=== PATIENT | female | born 1960 | race Caucasian/White ===

== ENCOUNTER 2017-02-07 21:16 | Emergency (ER) | payer BC, OTHER ==
[~2017-02-07] VITALS: Ht 176.5 cm; Wt 84.2 kg
[2017-02-07 21:21] VITALS: TEMP 36.7; Ht 176.5 cm; Wt 84.2 kg
[2017-02-07] MEDS ORDERED: AMOXICIL/CLAVU 875MG HOME PACK PO ONE (21:45)
[2017-02-07] MEDS ORDERED: DIPHTHERIA/TETANUS/PERTUSSIS 0.5 ML SYR/VIAL IM. ONE (21:45)
[2017-02-07] MEDS ORDERED: AMOX875T PO (21:46)
[2017-02-07 22:08] VITALS: BP 141/87; PULSE 87; O2SAT 95
--- NOTE | 2017-02-07 22:18 | EMERGENCY ROOM VISIT NOTE ---
History First contact with patient: 21:48 Chief Complaint: WOUND INFECTION Stated Complaint: WOUND IN LEFT HAND, 3RD DIGIT Nursing Triage Summary: Patient states that she but cut her left middle finger, reports increased pain and swelling. States that she has been workin on in the soil. Doesn't think her tetanus shot is utd. History of Present Illness The patient is a 56 year old female who presents to the Emergency Room with complaints of an infection in her left third finger. The patient reports that she has been doing a lot of planting and working and soil lately. She reports that she split the fingernail on her finger, and pulled it off. Within 24 hours , she then started to noticed discomfort and swelling. Today she now reports redness along the nail. She has not noticed any drainage. The pain does not extend up the finger. She denies any paresthesias or numbness of the finger. The patient is [id number]. Patient is uncertain of her last tetanus immunization. Review of Systems 10 system review was performed and was negative except for pertinent positives and negatives as indicated in history of present illness Past Medical/Surgical History Medical Problems: (1) Diffus Cystic Mastopathy Family History Unremarkable Social History Smoking Status: Never Smoker Alcohol Use: none Marital Status: single Occupation Status: employed Current/Historical Medications Scheduled Amoxicillin & Pot Clavulanate (Augmentin 875-125 mg), 1 TAB PO BID Allergies Coded Allergies: No Known Allergies (Unverified , NONE, 02/07/17) Physical Exam Vital Signs Date Time Temp Pulse Resp B/P Pulse Ox O2 Delivery O2 Flow Rate FiO2 02/07/17 22:08 87 19 141/87 95 02/07/17 21:21 36.7 59 20 137/86 98 Room Air Pain Rating (0-10): 4.0 Physical Exam CONSTITUTIONAL: Healthy and well nourished. Alert and oriented X 3 with positive affect. HEENT: Normocephalic, atraumatic. Pupils equal, round and reactive. NECK: Full active range of motion without discomfort. MUSCULOSKELETAL: Examination of the left third finger shows erythema and edema over the radial nail fold. There is no fluctuance or drainage. Nail plate is intact. Capillary refill is less than 2 seconds. INTEGUMENTARY: No rash or other significant dermatologic conditions noted. NEUROLOGIC: Left third fingertip is sensory intact. Medical Decision & Procedures Medications Administered Medications (Trade) Dose Ordered Sig/Homer Route Start Time Stop Time Status Last Admin Dose Admin Amoxicillin/ Clavulanate Potassium (Augmentin 875MG Home Pack) 1 homepack UD ONCE PO 02/07/17 21:45 02/07/17 21:46 DC 02/07/17 21:59 1 HOMEPACK Diphtheria/ Pertussis/Tetanus Vacc (Adacel Inj) 0.5 ml ONCE ONCE IM. 02/07/17 21:45 02/07/17 21:46 DC 02/07/17 21:59 0.5 ML ED Course Patient history and physical exam were performed. Nurse's notes were reviewed. The patient was administered Adacel IM. The patient reports that she has a GI sensitivity to Keflex. The patient was provided a home pack and prescription for Augmentin. She was encouraged to keep the fingertip covered with an ointment and dressing. She was instructed to return to the emergency department for any progressively worsening infection, pain, red streaks or fever. Ibuprofen or Tylenol as needed for pain. The patient was happy with plan of care, voiced understanding of all discharge instructions, and rated her discomfort a 3 out of 10 at the time of discharge. Medical Decision Impression Primary Impression: Paronychia of left middle finger Departure Information Dispostion Home / Self-Care Prescriptions Amoxicillin & Pot Clavulanate (Augmentin 875-125 mg) 1 Tab Tab 1 TAB PO BID for 10 Days, #20 TAB Prov: Osorio Maher PA 02/07/17 Forms HOME CARE DOCUMENTATION FORM, IMPORTANT VISIT INFORMATION Patient Instructions [facility], ED Infec Fingernail Additional Instructions Keep wound clean and covered with an ointment and dressing. Ibuprofen or Tylenol as needed for pain. Complete all Augmentin antibiotics as prescribed. Return to the emergency department for any significantly worsening redness, swelling, pain, red streaks or fever.
== END 2017-02-07 22:09 | disposition home or self-care (01) ==
LOC: C.EDB 21:17 → C.EDD 22:09
DX: L03.012 Cellulitis of left finger (principal)

== ENCOUNTER → 2017-09-04 | Outpatient (CLI) | payer BC ==
--- NOTE | 2017-09-05 14:27 | MAMMOGRAPHY REPORT ---
BILATERAL DIGITAL SCREENING MAMMOGRAM WITH CAD: 09/04/2017 CLINICAL HISTORY: Routine screening. Patient has no complaints. TECHNIQUE: Bilateral CC and MLO views were obtained. Current study was also evaluated with a Compute r Aided Detection (CAD) system. COMPARISON: Comparison is made to exams dated: 02/16/2015 mammogram, 04/25/2014 mammogram, 10/03/2012 ma mmogram, 09/21/2011 mammogram, 09/16/2010 mammogram, and 09/23/2009 mammogram - [facility]. BREAST COMPOSITION: There are scattered areas of fibroglandular density in both breasts. FINDINGS: There is a 5 mm focal asymmetry in the upper outer anterior right breast, for which additi onal spot compression tomosynthesis views and possible ultrasound are recommended. Possible grouping of microcalcifications in the 12:00 middle one third of the left breast, for which additional spot m agnification views are recommended. There is a stable circumscribed mass with associated biopsy marker clip in the 6:00 anterior right br east. No other suspicious mass, architectural distortion or cluster of microcalcifications is seen. IMPRESSION: ACR BI-RADS CATEGORY 0: INCOMPLETE EVALUATION: NEED ADDITIONAL IMAGING EVALUATION The 5 mm focal asymmetry in the upper outer anterior right breast, and possible microcalcifications i n the 12:00 left breast need additional imaging evaluation. The patient will be called to schedule an appointment. Approximately 10% of breast cancers are not detected with mammography. A negative mammographic report should not delay biopsy if a clinically suggestive mass is present. Michelle Angelo M.D. ay/:09/04/2017 15:43:20 Flooring Grader: Lala RUIZ(R)(Irasema)(BD), [facility] letter sent: Addl Imaging 0 BI-RADS Code: ACR BI-RADS Category 0: Incomplete Evaluation: Need Additional Imaging Evaluation
== END | disposition home or self-care (01) ==
LOC: C.MAMM 14:34
PROVIDERS: ATTEND Physician Assistant
DX: Z12.31 Encounter for screening mammogram for malignant neoplasm of breast (principal); N64.89 Other specified disorders of breast; R92.0 Mammographic microcalcification found on diagnostic imaging of breast

== ENCOUNTER → 2017-09-18 | Outpatient (CLI) | payer BC ==
--- NOTE | 2017-09-19 07:55 | MAMMOGRAPHY REPORT ---
BILATERAL DIGITAL DIAGNOSTIC MAMMOGRAM TOMOSYNTHESIS AND TARGETED RIGHT ULTRASOUND: 09/18/2017 CLINICAL HISTORY: 57-year-old woman called back from screening mammography for a 5 mm lobulated asymm etry/mass in the upper outer anterior right breast, and a possible small grouping of microcalcificati ons in the 12:00 left breast. She has a history of prior benign surgical excisional biopsy and ultra sound-guided core biopsy in the right breast. TECHNIQUE: Spot magnification left CC, ML and spot compression 2-D and tomosynthesis right CC and ML O views were obtained. COMPARISON: Comparison is made to exams dated: 09/04/2017 mammogram, 02/16/2015 mammogram, 04/25/2014 m ammogram, 10/03/2012 mammogram, 09/21/2011 mammogram, and 09/16/2010 mammogram - [facility]. BREAST COMPOSITION: There are scattered areas of fibroglandular density in both breasts. FINDINGS: The spot compression tomosynthesis views of the right breast demonstrate a lobulated and c ircumscribed low density mass in the upper outer anterior right breast measuring 5.2 x 4.0 x 6.8 mm. No associated calcification or architectural distortion. There is a stable ribbon-shaped biopsy mar ker clip with associated nodularity in the lower inner anterior right breast. No other masses, areas of distortion or asymmetries are identified in the right breast. Spot magnification views of the left breast demonstrate a very faint grouping of amorphous microcalci fications in the 12:00 middle one third of the breast measuring approximately 1.5 mm. None demonstra te layering on the spot magnification ML view to confirm benign milk of calcium. When comparing back to prior available mammograms these may have been present on the 2014 and 2010 mammograms but diffic ult for accurate comparison given different equipment and technique. Therefore, a short interval fol low-up left diagnostic mammogram including spot magnification views is recommended to ensure stabilit y in 6 months. Targeted ultrasound was performed in the upper outer quadrant of the right breast to assess for the l obulated and circumscribed low-density subcentimeter mass. In the 9:00 axis, 1 cm from the nipple, t here is a lobulated anechoic benign simple cyst measuring 3.8 x 3.2 x 4.6 mm. This is thought to cor relate with the mammographic finding and is benign. No further workup is needed at this time. IMPRESSION: ACR-BI-RADS CATEGORY 3: PROBABLY BENIGN, TARGETED ULTRASOUND ACR-BI-RADS CATEGORY 3: PRO BABLY BENIGN 1. A lobulated low-density subcentimeter mass in the upper outer anterior right breast is thought to correlate with a benign anechoic cyst seen in the 9:00 right breast on ultrasound. No further domenico p is needed at this time. 2. A tiny, 1.5 mm grouping of amorphous microcalcifications in the 12:00 middle one third of the lef t breast may have been present dating back to 2014 and 2010, based on prior full Field mammograms [place] accurate comparisons are difficult given different equipment and differing technique. Therefor e, a short interval follow-up left diagnostic mammogram including spot magnification views is recomme nded to ensure stability in 6 months. These results and recommendations were discussed with the patient at the time of the exam. Approximately 10% of breast cancers are not detected with mammography. A negative mammographic report should not delay biopsy if a clinically suggestive mass is present. Michelle Angelo M.D. ay/:09/18/2017 15:19:02 Chair Caner: [place] RUIZ(R)(M), [facility] letter sent: Follow Up Recommended 3 BI-RADS Code: ACR-BI-RADS Category 3: Probably Benign Ultrasound BI-RADS: ACR-BI-RADS Category 3: Pr obably Benign
== END | disposition home or self-care (01) ==
LOC: C.MAMM 10:02
PROVIDERS: ATTEND Physician Assistant
DX: N63.0 Unspecified lump in unspecified breast (principal); R92.0 Mammographic microcalcification found on diagnostic imaging of breast